=== PATIENT | male | born 1960 | race African-American/Black ===

== ENCOUNTER 2019-02-04 14:01 | Inpatient (IN) | payer SELFPAY ==
[~2019-02-04] VITALS: Ht 182.9 cm; Wt 105.7 kg
--- NOTE | 2019-02-04 14:27 | RAD ---
CT HEAD WO CONTRAST Clinical indications: Stroke like symptoms. COMPARISON: None available. Technique: Noncontrast axial cross sectional scanning of the head was performed. PQRS compliance Statement One or more of the following individualized dose reduction techniques were utilized for this study: 1. Automated exposure control 2. Adjustment of the mA and/or kV according to patient size 3. Use of iterative reconstruction technique Findings: No acute intracranial hemorrhage or midline shift or mass-effect or hydrocephalus or extra-axial fluid collection is seen. No focal hypodense area or sulci effacement is seen to indicate an acute infarct or edema radiographically. No skull fracture or pneumocephalus is seen. No opacification of the mastoid sinuses or the paranasal sinuses is seen. The maxillary sinuses are not completely seen in this study. Impression: No acute intracranial abnormality is seen. Electronically signed by: Francisco Rossi MD (02/04/2019 2:24 PM) [id number]
[2019-02-04] MEDS: ASPIRIN CHEWABLE 81 MG TABLET. PO ONE ×2 (14:35→15:25)
--- NOTE | 2019-02-04 14:46 | PHYS DOC ---
Past Medical History Past Medical History: Hypertension Smoking: Cigarettes Adult General Chief Complaint Chief Complaint: NEURO SYMPTOMS/DEFICITS HPI HPI Patient is a 58-year-old male who presents to the emergency department for evaluation. He states that 45 minutes prior to arrival, he began to feel funny. He states he had some tingling in his left hand, and there was some questionable left hand weakness as well and possible left facial droop. The patient denies any headache or vision changes, or any pain. A code stroke was activated upon his arrival. He denies any chest pain shortness of breath, nausea, vomiting, or ataxia. There are no alleviating or exacerbating factors to his symptoms. Review of Systems Review of Systems Constitutional: Denies fever or chills [] Eyes: Denies change in visual acuity, redness, or eye pain [] HENT: Denies nasal congestion or sore throat [] Respiratory: Denies cough or shortness of breath [] Cardiovascular:The patient denies any shortness of breath, chest pain, palpitations, or orthopnea [] GI: Denies abdominal pain, nausea, vomiting, bloody stools or diarrhea [] : Denies dysuria or hematuria [] Musculoskeletal: Denies back pain or joint pain [] Integument: Denies rash or skin lesions [] Neurologic: No additional information not addressed in HPI [] Endocrine: Denies polyuria or polydipsia [] All other systems were reviewed and found to be within normal limits, except as documented in this note. Current Medications Current Medications Current Medications Medications (Trade) Dose Ordered Sig/Dipika Start Time Stop Time Status Last Admin Dose Admin Acetaminophen (Tylenol Supp) 650 mg PRN Q4HRS PRN 02/04/19 15:30 UNV Acetaminophen (Tylenol) 650 mg PRN Q6HRS PRN 02/04/19 15:30 UNV Aspirin (Aspirin Rectal Supp) 300 mg PRN DAILY PRN 02/04/19 15:30 UNV Aspirin (Children'S Aspirin) 324 mg 1X ONCE 02/04/19 14:30 02/04/19 14:57 DC 02/04/19 15:25 324 MG Aspirin (Ecotrin) 325 mg [id number] 02/05/19 08:00 UNV Iohexol (Omnipaque 350 Mg/ml) 75 ml 1X ONCE 02/04/19 15:00 02/04/19 15:01 DC 02/04/19 15:00 75 ML Simvastatin (Zocor) 10 mg QHS 02/04/19 21:00 UNV Allergies Allergies Allergies Coded Allergies Type Severity Reaction Last Updated Verified No Known Drug Allergies 02/04/19 No Physical Exam Physical Exam PHYSICAL EXAM: CONSTITUTIONAL: Well developed, well nourished HEAD: normocephalic, atraumatic EENT: PERRL, EOMI. Conjunctivae normal color, sclerae non-icteric; moist mucous membranes. NECK: Supple, non-tender; no meningismus. LUNGS: Lungs CTA, breathing even and unlabored. Normal air movement. HEART: Regular rate and rhythm, no murmur CHEST: No deformity; non-tender ABDOMEN: The abdomen is soft, and non-tender, no masses or bruits. EXTREM: Normal ROM; no deformity, no calf tenderness. Normal pulses palpable in all extremities. There is no pedal edema. SKIN: No rash; no diaphoresis NEURO: Alert; normal speech and cognition, CN's grossly intact to the patient's uncle, there is a questionable left-sided facial droop, very subtle, not appreciated by the examiner. Sensation to pinprick is diminished on the left side compared to the right, but grossly present. Finger nose finger and [id number] testing are normal. Visual stewart are intact by confrontation.; strength grossly intact without focal deficit. BACK: No CVA TTP. Current Patient Data Vital Signs Vital Signs Date Time Temp Pulse Resp B/P (MAP) Pulse Ox O2 Delivery O2 Flow Rate FiO2 02/04/19 14:20 98.2 98 12 150/71 (97) 100 98.2 Lab Values Laboratory Tests Test 02/04/19 14:10 02/04/19 14:25 02/04/19 15:00 02/04/19 15:08 Glucose (Fingerstick) 114 mg/dL (70-99) H White Blood Count 8.2 x10^3/uL (4.0-11.0) Red Blood Count 4.39 x10^6/uL (4.30-5.70) Hemoglobin 13.8 g/dL (13.0-17.5) Hematocrit 40.5 % (39.0-53.0) Mean Corpuscular Volume 92 fL (79-100) Mean Corpuscular Hemoglobin 31 pg (25-35) Mean Corpuscular Hemoglobin Concent 34 g/dL (31-37) Red Cell Distribution Width 15.3 % (11.5-14.5) H Platelet Count 226 x10^3/uL (140-400) Neutrophils (%) (Auto) 59 % (31-73) Lymphocytes (%) (Auto) 29 % (24-48) Monocytes (%) (Auto) 8 % (0-9) Eosinophils (%) (Auto) 3 % (0-3) Basophils (%) (Auto) 1 % (0-3) Neutrophils # (Auto) 4.8 x10^3uL (1.8-7.7) Lymphocytes # (Auto) 2.4 x10^3/uL (1.0-4.8) Monocytes # (Auto) 0.7 x10^3/uL (0.0-1.1) Eosinophils # (Auto) 0.3 x10^3/uL (0.0-0.7) Basophils # (Auto) 0.1 x10^3/uL (0.0-0.2) Sodium Level 141 mmol/L (136-145) Potassium Level 3.8 mmol/L (3.5-5.1) Chloride Level 103 mmol/L (98-107) Carbon Dioxide Level 27 mmol/L (21-32) Anion Gap 11 (6-14) Blood Urea Nitrogen 13 mg/dL (8-26) Creatinine 1.0 mg/dL (0.7-1.3) Estimated GFR (Cockcroft-Gault) 92.9 BUN/Creatinine Ratio 13 (6-20) Glucose Level 111 mg/dL (70-99) H Calcium Level 9.0 mg/dL (8.5-10.1) Total Bilirubin 0.3 mg/dL (0.2-1.0) Aspartate Amino Transferase (AST) 18 U/L (15-37) Alanine Aminotransferase (ALT) 24 U/L (16-63) Alkaline Phosphatase 56 U/L (46-116) Troponin I Quantitative < 0.017 ng/mL (0.000-0.055) RC-Wfa-N-Type Natriuretic Peptide 51 pg/mL (0-124) Total Protein 6.9 g/dL (6.4-8.2) Albumin 3.7 g/dL (3.4-5.0) Albumin/Globulin Ratio 1.2 (1.0-1.7) Prothrombin Time 14.4 SEC (11.7-14.0) H Prothrombin Time INR 1.2 (0.8-1.1) H Urine Opiates Screen Pos (NEG) Urine Methadone Screen Neg (NEG) Urine Barbiturates Neg (NEG) Urine Phencyclidine Screen Neg (NEG) Urine Amphetamine/Methamphetamine Neg (NEG) Urine Benzodiazepines Screen Pos (NEG) Urine Cocaine Screen Neg (NEG) Urine Cannabinoids Screen Pos (NEG) Urine Ethyl Alcohol Pos (NEG) Laboratory Tests 02/04/19 14:25 Laboratory Tests 02/04/19 14:25 EKG EKG []Normal sinus rhythm at a rate of 90 beats for minute, normal axis, normal intervals. There are no acute ischemic ST/T changes. Radiology/Procedures Radiology/Procedures PROCEDURE: CT HEAD WO CONTRAST CT HEAD WO CONTRAST Clinical indications: Stroke like symptoms. COMPARISON: None available. Technique: Noncontrast axial cross sectional scanning of the head was performed. PQRS compliance Statement One or more of the following individualized dose reduction techniques were utilized for this study: 1. Automated exposure control 2. Adjustment of the mA and/or kV according to patient size 3. Use of iterative reconstruction technique Findings: No acute intracranial hemorrhage or midline shift or mass-effect or hydrocephalus or extra-axial fluid collection is seen. No focal hypodense area or sulci effacement is seen to indicate an acute infarct or edema radiographically. No skull fracture or pneumocephalus is seen. No opacification of the mastoid sinuses or the paranasal sinuses is seen. The maxillary sinuses are not completely seen in this study. Impression: No acute intracranial abnormality is seen. Course & Med Decision Making Course & Med Decision Making Pertinent Labs and Imaging studies reviewed. (See chart for details) []2:35 PM: I spoke with Dr. Brandon, who will come and evaluate the patient. Due to the low NIH stroke scale, TPA is not indicated at this time. 3:40 PM: The patient's condition remains stable. I spoke with the hospitalist, who accepted the patient to the hospital for further evaluation and treatment. CT angiogram is currently pending. CRITICAL CARE TIME: 50 Minutes, excluding any procedures and care of other patients. Dragon Disclaimer Dragon Disclaimer This electronic medical record was generated, in whole or in part, using a voice recognition dictation system. NIHSS Stroke Scale NIH Stroke Scale: NIH Stroke Scale Response (Comments) Value Level of Consciousness: 0 Alert/Responsive 0 LOC Questions: 0 Answers both correctly 0 LOC Commands: 0 Performs both tasks 0 Best Gaze: 0 Normal 0 Visual: 0 No visual loss 0 Facial Palsy: 1 Minor paralysis (questionable) 1 Motor - Left Arm 0 No drift 0 Motor - Right Arm 0 No drift 0 Motor - Left Leg 0 No drift 0 Motor: Right Leg 0 No drift 0 Limb Ataxia: 0 Absent 0 Sensory: 1 Mid to moderate loss 1 Best Language: 0 Normal 0 Dysathria: 0 Normal 0 Extinction and Inattention: 0 Normal 0 Total 2 Departure Departure Impression: Primary Impression: Acute ischemic stroke Additional Impression: Lacunar stroke Disposition: 09 ADMITTED INPATIENT Admitting Physician: NIKI Condition: STABLE Problem Qualifiers FABIO BATES MD February 04, 2019 14:46
[2019-02-04 14:48] LABS: BASO # 0.1 x10^3/uL (0.0-0.2); BASO % 1 % (0-3); EOS # 0.3 x10^3/uL (0.0-0.7); EOS % 3 % (0-3); HEMATOCRIT 40.5 % (39.0-53.0); HEMOGLOBIN 13.8 g/dL (13.0-17.5); LYMPH # 2.4 x10^3/uL (1.0-4.8); LYMPH % 29 % (24-48); MEAN CORPUSCULAR HEMOGLOBIN 31 pg (25-35); MEAN CORPUSCULAR HGB CONC 34 g/dL (31-37); MEAN CORPUSCULAR VOLUME 92 fL (79-100); MONO # 0.7 x10^3/uL (0.0-1.1); MONO % 8 % (0-9); NEUT # 4.8 x10^3uL (1.8-7.7); NEUT % 59 % (31-73); PLATELET COUNT 226 x10^3/uL (140-400); RED BLOOD COUNT 4.39 x10^6/uL (4.30-5.70); RED CELL DISTRIBUTION WIDTH 15.3 % (11.5-14.5); WHITE BLOOD COUNT 8.2 x10^3/uL (4.0-11.0)
--- NOTE | 2019-02-04 14:51 | RAD ---
EXAM: CHEST 1 VIEW History: Stroke like symptoms, weakness COMPARISON: None available. TECHNIQUE: Single portable radiograph of the chest FINDINGS: The cardiac silhouette is unremarkable. The lungs are clear bilaterally. The costophrenic sulci are clear and well demarcated. IMPRESSION: No radiographic evidence of an acute cardiopulmonary process. Electronically signed by: Diogo Loredo MD (02/04/2019 2:49 PM) [facility]
[2019-02-04] MEDS ORDERED: IOHEXOL 350 MG/ML 100 ML VIAL. IV ONE (15:00)
--- NOTE | 2019-02-04 15:13 | EKG ---
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
[2019-02-04 15:17] LABS: ALBUMIN 3.7 g/dL (3.4-5.0); ALBUMIN/GLOBULIN RATIO 1.2 (1.0-1.7); GFR 92.9; POTASSIUM 3.8 mmol/L (3.5-5.1); TOTAL BILIRUBIN 0.3 mg/dL (0.2-1.0); TOTAL PROTEIN 6.9 g/dL (6.4-8.2)
[2019-02-04 15:18] LABS: BILIRUBIN,URINE NEGATIVE (NEG); CLARITY,URINE CLEAR; COLOR,URINE YELLOW; NITRITE,URINE NEGATIVE (NEG); PH,URINE 5.5; PROTEIN,URINE NEGATIVE (NEG-TRACE)
[2019-02-04 15:25] LABS: BARBITURATES NEG (NEG); BENZODIAZEPINES POS (NEG); CANNABINOIDS POS (NEG); COCAINE NEG (NEG); METHADONE NEG (NEG); OPIATES POS (NEG); PHENCYCLIDINE NEG (NEG)
[2019-02-04 15:26] LABS: PROTHROMBIN TIME PATIENT 14.4 SEC (11.7-14.0)
[2019-02-04] MEDS ORDERED: ACETAMINOPHEN 325 MG TABLET. PO PRN (15:30)
[2019-02-04] MEDS ORDERED: ACETAMINOPHEN 650 MG SUPP.RECT. PR PRN (15:30)
[2019-02-04] MEDS ORDERED: ASPIRIN RECTAL 300 MG SUPP. PR PRN (15:30)
--- NOTE | 2019-02-04 15:34 | PDOC2 ---
NEUROLOGY CONSULT Date of Admission Date of Admission DATE: 02/04/19 TIME: 15:29 Reason for Consult Reason for Consult: Stroke symptoms Referring Physician Referring Physician: Hospitalist Source Source: Caregiver (uncle), Chart review, Patient History of Present Illness History of Present Illness The patient is a 58-year-old right-handed male with history of hypertension who went to visit his uncle about 1:[address] over started noticing some lightheadedness. He noticed some left arm numbness in the uncle noticed some left facial droop. The patient is feeling better now although he still has some left-sided numbness. There is no prior history of stroke, seizure, or head injury. 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, no treat drugs, smokes cigarettes, 2 alcoholic beverages a day, beer Current Medications Current Medications Current Medications Aspirin (Children'S Aspirin) 324 mg 1X ONCE PO Last administered on 02/04/19at 15:25; Start 02/04/19 at 14:30; Stop 02/04/19 at 14:57; Status DC Iohexol (Omnipaque 350 Mg/ml) 75 ml 1X ONCE IV ; Start 02/04/19 at 15:00; Stop 02/04/19 at 15:01; Status DC Allergies Allergies: Coded Allergies: No Known Drug Allergies (Unverified , 02/04/19) ROS Review of System Negative for fever, chills, weight loss, shortness of breath, chest pain, indigestion, hematochezia, melena, and dysuria. Full 14-point review of systems is negative. Physical Exam Physical Examination General: Well-developed, well-nourished black male in no acute distress HEENT: Normocephalic andatraumatic. Temporal arteriespulsatile and nontender. Neck: Supple without bruit, no meningismus Musculoskeletal: Stability:see neurologic. Gait exam:see neurologic. Tone:see neurologic.S trength:see neurologic. Neurological: Mental Status:intact, orientation, memory, attention span/concentration, language, fund of knowledge normal. Cranial Nerves:Pupils equal and reactive to light, extraocular movements areintact, visual stewart are full to confrontation. Facial sensation is normal. There is no facial asymmetry. Vestibulo-ocular reflex is intact. Palate elevates and tongue protrudes in midline. All other cranial related problems are negative except as mentioned before.Reflexes:2+ and symmetric with flexor plantar responses. Motor:5/5 strength with normal tone and bulk. Coordination:Finger-nose finger and ellen l-to-ivy testing are normal. Rapid alternating movements and fine finger movements are intact. Gait:Normal, including tandem. Sensory:Left sensory loss, arm and leg, spares face Vitals VITALS Vital Signs Date Time Temp Pulse Resp B/P (MAP) Pulse Ox O2 Delivery O2 Flow Rate FiO2 02/04/19 14:20 98.2 98 12 150/71 (97) 100 98.2 Labs Labs Laboratory Tests Test 02/04/19 14:10 02/04/19 14:25 Glucose (Fingerstick) 114 mg/dL (70-99) White Blood Count 8.2 x10^3/uL (4.0-11.0) Red Blood Count 4.39 x10^6/uL (4.30-5.70) Hemoglobin 13.8 g/dL (13.0-17.5) Hematocrit 40.5 % (39.0-53.0) Mean Corpuscular Volume 92 fL (79-100) Mean Corpuscular Hemoglobin 31 pg (25-35) Mean Corpuscular Hemoglobin Concent 34 g/dL (31-37) Red Cell Distribution Width 15.3 % (11.5-14.5) Platelet Count 226 x10^3/uL (140-400) Neutrophils (%) (Auto) 59 % (31-73) Lymphocytes (%) (Auto) 29 % (24-48) Monocytes (%) (Auto) 8 % (0-9) Eosinophils (%) (Auto) 3 % (0-3) Basophils (%) (Auto) 1 % (0-3) Neutrophils # (Auto) 4.8 x10^3uL (1.8-7.7) Lymphocytes # (Auto) 2.4 x10^3/uL (1.0-4.8) Monocytes # (Auto) 0.7 x10^3/uL (0.0-1.1) Eosinophils # (Auto) 0.3 x10^3/uL (0.0-0.7) Basophils # (Auto) 0.1 x10^3/uL (0.0-0.2) Sodium Level 141 mmol/L (136-145) Potassium Level 3.8 mmol/L (3.5-5.1) Chloride Level 103 mmol/L (98-107) Carbon Dioxide Level 27 mmol/L (21-32) Anion Gap 11 (6-14) Blood Urea Nitrogen 13 mg/dL (8-26) Creatinine 1.0 mg/dL (0.7-1.3) Estimated GFR (Cockcroft-Gault) 92.9 BUN/Creatinine Ratio 13 (6-20) Glucose Level 111 mg/dL (70-99) Calcium Level 9.0 mg/dL (8.5-10.1) Total Bilirubin 0.3 mg/dL (0.2-1.0) Aspartate Amino Transf (AST/SGOT) 18 U/L (15-37) Alanine Aminotransferase (ALT/SGPT) 24 U/L (16-63) Alkaline Phosphatase 56 U/L (46-116) Troponin I Quantitative < 0.017 ng/mL (0.000-0.055) YP-Dkg-Q-Type Natriuretic Peptide 51 pg/mL (0-124) Total Protein 6.9 g/dL (6.4-8.2) Albumin 3.7 g/dL (3.4-5.0) Albumin/Globulin Ratio 1.2 (1.0-1.7) Laboratory Tests Test 02/04/19 14:10 02/04/19 14:25 Glucose (Fingerstick) 114 mg/dL (70-99) White Blood Count 8.2 x10^3/uL (4.0-11.0) Red Blood Count 4.39 x10^6/uL (4.30-5.70) Hemoglobin 13.8 g/dL (13.0-17.5) Hematocrit 40.5 % (39.0-53.0) Mean Corpuscular Volume 92 fL (79-100) Mean Corpuscular Hemoglobin 31 pg (25-35) Mean Corpuscular Hemoglobin Concent 34 g/dL (31-37) Red Cell Distribution Width 15.3 % (11.5-14.5) Platelet Count 226 x10^3/uL (140-400) Neutrophils (%) (Auto) 59 % (31-73) Lymphocytes (%) (Auto) 29 % (24-48) Monocytes (%) (Auto) 8 % (0-9) Eosinophils (%) (Auto) 3 % (0-3) Basophils (%) (Auto) 1 % (0-3) Neutrophils # (Auto) 4.8 x10^3uL (1.8-7.7) Lymphocytes # (Auto) 2.4 x10^3/uL (1.0-4.8) Monocytes # (Auto) 0.7 x10^3/uL (0.0-1.1) Eosinophils # (Auto) 0.3 x10^3/uL (0.0-0.7) Basophils # (Auto) 0.1 x10^3/uL (0.0-0.2) Sodium Level 141 mmol/L (136-145) Potassium Level 3.8 mmol/L (3.5-5.1) Chloride Level 103 mmol/L (98-107) Carbon Dioxide Level 27 mmol/L (21-32) Anion Gap 11 (6-14) Blood Urea Nitrogen 13 mg/dL (8-26) Creatinine 1.0 mg/dL (0.7-1.3) Estimated GFR (Cockcroft-Gault) 92.9 BUN/Creatinine Ratio 13 (6-20) Glucose Level 111 mg/dL (70-99) Calcium Level 9.0 mg/dL (8.5-10.1) Total Bilirubin 0.3 mg/dL (0.2-1.0) Aspartate Amino Transf (AST/SGOT) 18 U/L (15-37) Alanine Aminotransferase (ALT/SGPT) 24 U/L (16-63) Alkaline Phosphatase 56 U/L (46-116) Troponin I Quantitative < 0.017 ng/mL (0.000-0.055) PQ-Itv-Q-Type Natriuretic Peptide 51 pg/mL (0-124) Total Protein 6.9 g/dL (6.4-8.2) Albumin 3.7 g/dL (3.4-5.0) Albumin/Globulin Ratio 1.2 (1.0-1.7) Images Images CT HEAD WO CONTRAST No acute intracranial hemorrhage or midline shift or mass-effect or hydrocephalus or extra-axial fluid collection is seen. No focal hypodense area or sulci effacement is seen to indicate an acute infarct or edema radiographically. No skull fracture or pneumocephalus is seen. No opacification of the mastoid sinuses or the paranasal sinuses is seen. The maxillary sinuses are not completely seen in this study. Impression: No acute intracranial abnormality is seen. Assessment/Plan Assessment/Plan Impression: Clinically a right thalamic lacunar stroke causing only sensory symptoms. He is making a rapid improvement and has only minimal findings on exam, so, as discussed with Dr. Greene, I agree that he is not a candidate for alteplase Recommendations: Aspirin MRI of the brain Echocardiogram Carotid Doppler studies Rehabilitation screening Aspirin Patient will have to hold his ibuprofen while taking aspirin, he can use Tylenol instead Aim for discharge tomorrow. Also see stroke orders. Thank you for letting me help with the patient's care. FAHAD ARGUETA MD February 04, 2019 15:34
[2019-02-04 15:35] LABS: AMPHETAMINE/METHAMPHETAMINE NEG (NEG)
[2019-02-04 15:48] LABS: BACTERIA,URINE 0 /HPF (0-FEW); HYALINE CASTS, URINE OCCASIONAL /HPF; WBC,URINE 0 /HPF (0-4)
--- NOTE | 2019-02-04 16:25 | RAD ---
CT ANGIOGRAPHY HEAD AND NECK Indication: Left-sided weakness Exposure: One or more of the following individualized dose reduction techniques were utilized for this examination: 1. Automated exposure control 2. Adjustment of the mA and/or kV according to patient size 3. Use of iterative reconstruction technique. TECHNIQUE: Standard imaging obtained after intravenous contrast. MIP reconstructions were obtained. All carotid stenosis measurements are in conformance with NASCET-type methodology. Emergency interpretation and reporting was requested to exclude large vessel occlusion. Comparison: None are available. NECK: Right carotid artery is grossly patent. Left carotid artery is grossly patent. Right vertebral artery is diffusely and uniformly narrow in caliber, and is poorly seen at some levels due to streak artifact from bones but no definite occlusion. The left vertebral artery is dominant in caliber and appears grossly patent although again there is limited visualization of subsegments due to artifact from the bones. HEAD: The distal right vertebral artery is very small in the distal left vertebral artery is dominant. Basilar artery is patent. There is venous contamination on the exam. Posterior cerebral arteries are patent bilaterally. The intracranial carotid arteries are grossly patent. Middle cerebral arteries and anterior cerebral arteries are patent. No evidence of large aneurysm. Nonvascular findings: Limited due to technique which was dedicated towards arterial evaluation. There is a heterogeneous thyroid nodule on the right measuring about 12 mm. Degenerative spondylosis of the cervical spine with moderate to severe spinal and neural foraminal stenosis. PET was evaluated separately on CT head report. IMPRESSION: 1. No evidence of large vessel occlusion. 2. Heterogeneous 12 mm right thyroid nodule. Ultrasound could further evaluate. 3. Cervical spondylosis with moderate to severe spinal and foraminal stenosis. Electronically signed by: Candido Joseph MD (02/04/2019 4:22 PM) [id number]
[2019-02-04 18:41] VITALS: BP 129/87
[2019-02-04 19:10] VITALS: BP 140/83
--- NOTE | 2019-02-04 19:19 | PDOC1 ---
History and Physical Date of Admission: Date of Admission DATE: 02/04/19 TIME: 19:16 Chief Complaint: Problems: (1) Acute ischemic stroke (2) Lacunar stroke Chief Complain: Left-sided weakness History of Present Illness: HPI: This is a middle-aged male who presented to the ER with left- sided weakness He rates it 7 out of 10 Has been coming on for couple days but got worse today It's better with sitting still worse with moving He took home meds with that and work Describes as irritating Appears he may have had a low lacunar infarct on imaging I discussed the case with ER physician were going to with patient did physical therapy back facial therapy speech therapy and consult neurology Past Medical/Surgical History: PMH/PSH: Hypertension Allergies: Allergies: Coded Allergies: No Known Drug Allergies (Unverified , 02/04/19) Family History: Family History: Strokes Social History: Social Hisoty: He doesn't drink smoke or take drugs Current Medications: Current Medications Current Medications Aspirin (Children'S Aspirin) 324 mg 1X ONCE PO Last administered on 02/04/19at 15:25; Start 02/04/19 at 14:30; Stop 02/04/19 at 14:57; Status DC Iohexol (Omnipaque 350 Mg/ml) 75 ml 1X ONCE IV Last administered on 02/04/19at 15:00; Start 02/04/19 at 15:00; Stop 02/04/19 at 15:01; Status DC Simvastatin (Zocor) 10 mg QHS PO ; Start 02/04/19 at 21:00 Acetaminophen (Tylenol) 650 mg PRN Q6HRS PRN PO TEMP > 100.4F; Start 02/04/19 at 15:30 Acetaminophen (Tylenol Supp) 650 mg PRN Q4HRS PRN [place] TEMP > 100.4F; Start 02/04/19 at 15:30 Aspirin (Ecotrin) 325 mg DAILYWBKFT PO ; Start 02/05/19 at 08:00 Aspirin (Aspirin Rectal Supp) 300 mg PRN DAILY PRN [place] IF UNABLE TO TAKE PO; Start 02/04/19 at 15:30 Acetaminophen/ Hydrocodone Bitart (Lortab 5/325) 1 tab PRN Q4HRS PRN PO PAIN; Start 02/04/19 at 18:00 ROS: Review of Systems Review of System REVIEW OF SYSTEMS: GENERAL: Complains of left-sided weakness SKIN: No bruising, hair changes or rashes. EYES: No blurred, double or loss of vision. NOSE AND THROAT: No history of nosebleeds, hoarseness or sore throat. HEART: No history of palpitations, chest pain or shortness of breath on exertion. LUNGS: Denies cough, hemoptysis, wheezing or shortness of breath. GASTROINTESTINAL: Denies changes in appetite, nausea, vomiting, diarrhea or constipation. GENITOURINARY: No history of frequency, urgency, hesitancy or nocturia. NEUROLOGIC: Complains of left-sided weakness ENDOCRINE: No history of heat or cold intolerance, polyuria or polydipsia. EXTREMITIES: Denies muscle weakness, joint pain, pain on walking or stiffness. Physical Exam: Vital Signs: Vital Signs Date Time Temp Pulse Resp B/P (MAP) Pulse Ox O2 Delivery O2 Flow Rate FiO2 02/04/19 18:41 98.1 81 16 129/87 (101) 95 Room Air 98.1 Physcial Exam: GEN.: No apparent distress. Alert and oriented. HEENT: Head is normocephalic, atraumatic NECK: Supple, no JVD LUNGS: Clear to auscultation without rhonchi or wheezing HEART: RRR, S1, S2 present. Peripheral pulses intact ABDOMEN: Soft, nontender. Positive bowel sounds no organomegaly EXTREMITIES: Without any cyanosis, clubbing, or edema. Pedal pulses intact NEUROLOGIC: Left leg is weak but he has good area manager strength PSYCHIATRIC: Normal affect, normal mood. Stable SKIN: No ulcerations or rashes VASCULAR: Good capillary refill Labs: Labs: Laboratory Tests Test 02/04/19 14:10 02/04/19 14:25 02/04/19 15:00 02/04/19 15:08 Glucose (Fingerstick) 114 mg/dL (70-99) White Blood Count 8.2 x10^3/uL (4.0-11.0) Red Blood Count 4.39 x10^6/uL (4.30-5.70) Hemoglobin 13.8 g/dL (13.0-17.5) Hematocrit 40.5 % (39.0-53.0) Mean Corpuscular Volume 92 fL (79-100) Mean Corpuscular Hemoglobin 31 pg (25-35) Mean Corpuscular Hemoglobin Concent 34 g/dL (31-37) Red Cell Distribution Width 15.3 % (11.5-14.5) Platelet Count 226 x10^3/uL (140-400) Neutrophils (%) (Auto) 59 % (31-73) Lymphocytes (%) (Auto) 29 % (24-48) Monocytes (%) (Auto) 8 % (0-9) Eosinophils (%) (Auto) 3 % (0-3) Basophils (%) (Auto) 1 % (0-3) Neutrophils # (Auto) 4.8 x10^3uL (1.8-7.7) Lymphocytes # (Auto) 2.4 x10^3/uL (1.0-4.8) Monocytes # (Auto) 0.7 x10^3/uL (0.0-1.1) Eosinophils # (Auto) 0.3 x10^3/uL (0.0-0.7) Basophils # (Auto) 0.1 x10^3/uL (0.0-0.2) Sodium Level 141 mmol/L (136-145) Potassium Level 3.8 mmol/L (3.5-5.1) Chloride Level 103 mmol/L (98-107) Carbon Dioxide Level 27 mmol/L (21-32) Anion Gap 11 (6-14) Blood Urea Nitrogen 13 mg/dL (8-26) Creatinine 1.0 mg/dL (0.7-1.3) Estimated GFR (Cockcroft-Gault) 92.9 BUN/Creatinine Ratio 13 (6-20) Glucose Level 111 mg/dL (70-99) Calcium Level 9.0 mg/dL (8.5-10.1) Total Bilirubin 0.3 mg/dL (0.2-1.0) Aspartate Amino Transf (AST/SGOT) 18 U/L (15-37) Alanine Aminotransferase (ALT/SGPT) 24 U/L (16-63) Alkaline Phosphatase 56 U/L (46-116) Troponin I Quantitative < 0.017 ng/mL (0.000-0.055) MZ-Qid-U-Type Natriuretic Peptide 51 pg/mL (0-124) Total Protein 6.9 g/dL (6.4-8.2) Albumin 3.7 g/dL (3.4-5.0) Albumin/Globulin Ratio 1.2 (1.0-1.7) Prothrombin Time 14.4 SEC (11.7-14.0) Prothromb Time International Ratio 1.2 (0.8-1.1) Urine Collection Type Unknown Urine Color Yellow Urine Clarity Clear Urine pH 5.5 Urine Specific [place] 1.025 Urine Protein Negative mg/dL (NEG-TRACE) Urine Glucose (UA) Negative mg/dL (NEG) Urine Ketones (Stick) Negative mg/dL (NEG) Urine Blood Trace (NEG) Urine Nitrite Negative (NEG) Urine Bilirubin Negative (NEG) Urine Urobilinogen Dipstick 1.0 mg/dL (0.2 mg/dL) Urine Leukocyte Esterase Negative (NEG) Urine RBC 3-5 /HPF (0-2) Urine WBC 0 /HPF (0-4) Urine Bacteria 0 /HPF (0-FEW) Urine Hyaline Casts Occasional /HPF Urine Mucus Marked /LPF Urine Opiates Screen Pos (NEG) Urine Methadone Screen Neg (NEG) Urine Barbiturates Neg (NEG) Urine Phencyclidine Screen Neg (NEG) Urine Amphetamine/Methamphetamine Neg (NEG) Urine Benzodiazepines Screen Pos (NEG) Urine Cocaine Screen Neg (NEG) Urine Cannabinoids Screen Pos (NEG) Urine Ethyl Alcohol Pos (NEG) Laboratory Tests Test 02/04/19 14:10 02/04/19 14:25 02/04/19 15:00 02/04/19 15:08 Glucose (Fingerstick) 114 mg/dL (70-99) White Blood Count 8.2 x10^3/uL (4.0-11.0) Red Blood Count 4.39 x10^6/uL (4.30-5.70) Hemoglobin 13.8 g/dL (13.0-17.5) Hematocrit 40.5 % (39.0-53.0) Mean Corpuscular Volume 92 fL (79-100) Mean Corpuscular Hemoglobin 31 pg (25-35) Mean Corpuscular Hemoglobin Concent 34 g/dL (31-37) Red Cell Distribution Width 15.3 % (11.5-14.5) Platelet Count 226 x10^3/uL (140-400) Neutrophils (%) (Auto) 59 % (31-73) Lymphocytes (%) (Auto) 29 % (24-48) Monocytes (%) (Auto) 8 % (0-9) Eosinophils (%) (Auto) 3 % (0-3) Basophils (%) (Auto) 1 % (0-3) Neutrophils # (Auto) 4.8 x10^3uL (1.8-7.7) Lymphocytes # (Auto) 2.4 x10^3/uL (1.0-4.8) Monocytes # (Auto) 0.7 x10^3/uL (0.0-1.1) Eosinophils # (Auto) 0.3 x10^3/uL (0.0-0.7) Basophils # (Auto) 0.1 x10^3/uL (0.0-0.2) Sodium Level 141 mmol/L (136-145) Potassium Level 3.8 mmol/L (3.5-5.1) Chloride Level 103 mmol/L (98-107) Carbon Dioxide Level 27 mmol/L (21-32) Anion Gap 11 (6-14) Blood Urea Nitrogen 13 mg/dL (8-26) Creatinine 1.0 mg/dL (0.7-1.3) Estimated GFR (Cockcroft-Gault) 92.9 BUN/Creatinine Ratio 13 (6-20) Glucose Level 111 mg/dL (70-99) Calcium Level 9.0 mg/dL (8.5-10.1) Total Bilirubin 0.3 mg/dL (0.2-1.0) Aspartate Amino Transf (AST/SGOT) 18 U/L (15-37) Alanine Aminotransferase (ALT/SGPT) 24 U/L (16-63) Alkaline Phosphatase 56 U/L (46-116) Troponin I Quantitative < 0.017 ng/mL (0.000-0.055) YE-Oec-X-Type Natriuretic Peptide 51 pg/mL (0-124) Total Protein 6.9 g/dL (6.4-8.2) Albumin 3.7 g/dL (3.4-5.0) Albumin/Globulin Ratio 1.2 (1.0-1.7) Prothrombin Time 14.4 SEC (11.7-14.0) Prothromb Time International Ratio 1.2 (0.8-1.1) Urine Collection Type Unknown Urine Color Yellow Urine Clarity Clear Urine pH 5.5 Urine Specific [place] 1.025 Urine Protein Negative mg/dL (NEG-TRACE) Urine Glucose (UA) Negative mg/dL (NEG) Urine Ketones (Stick) Negative mg/dL (NEG) Urine Blood Trace (NEG) Urine Nitrite Negative (NEG) Urine Bilirubin Negative (NEG) Urine Urobilinogen Dipstick 1.0 mg/dL (0.2 mg/dL) Urine Leukocyte Esterase Negative (NEG) Urine RBC 3-5 /HPF (0-2) Urine WBC 0 /HPF (0-4) Urine Bacteria 0 /HPF (0-FEW) Urine Hyaline Casts Occasional /HPF Urine Mucus Marked /LPF Urine Opiates Screen Pos (NEG) Urine Methadone Screen Neg (NEG) Urine Barbiturates Neg (NEG) Urine Phencyclidine Screen Neg (NEG) Urine Amphetamine/Methamphetamine Neg (NEG) Urine Benzodiazepines Screen Pos (NEG) Urine Cocaine Screen Neg (NEG) Urine Cannabinoids Screen Pos (NEG) Urine Ethyl Alcohol Pos (NEG) Images: Images Findings: No acute intracranial hemorrhage or midline shift or mass-effect or hydrocephalus or extra-axial fluid collection is seen. No focal hypodense area or sulci effacement is seen to indicate an acute infarct or edema radiographically. No skull fracture or pneumocephalus is seen. No opacification of the mastoid sinuses or the paranasal sinuses is seen. The maxillary sinuses are not completely seen in this study. Impression: No acute intracranial abnormality is seen. Assessment/Plan Assessment/Plan Stroke symptoms Patient plan Consult neurology PT OT Daily aspirin Cardiac monitoring Home meds Full code DVT prophylaxis Prognosis guarded LOVE JAMES III DO February 04, 2019 19:19
[2019-02-04] MEDS ORDERED: SIMVASTATIN 10 MG TABLET PO SCH (21:00)
[2019-02-04] MEDS: HYDROcodone/APAP 5/325MG 1 TAB TABLET PO PRN (21:27)
[2019-02-04 23:59] VITALS: BP 129/81
[2019-02-05] MEDS: HYDROcodone/APAP 5/325MG 1 TAB TABLET PO PRN ×3 (01:59→12:57)
--- NOTE | 2019-02-05 03:16 | RAD ---
DOPPLER CAROTID BILAT Clinical Indication: CVA. Procedure: Pulsed wave and color-flow duplex imaging was utilized to evaluate the extracranial carotid arteries. Comparison: None. Findings: RIGHT SIDE: Mild atherosclerotic plaque on mcgee-scale images. Distal CCA peak systolic velocity 66 cm/sec. ICA peak systolic velocity 83 cm/sec. The right ICA/CCA ratio is 1.3. Flow within the right vertebral artery and right ECA is directed antegrade. Triphasic waveforms in the subclavian artery. LEFT SIDE: Mild atherosclerotic plaque on mcgee-scale images. Distal CCA peak systolic velocity 78 cm/sec. ICA peak systolic velocity 81 cm/sec. The left ICA/CCA ratio is 1.0. Flow within the left vertebral artery and left ECA is directed antegrade. Triphasic waveforms in the subclavian artery. Carotid legend: CCA = common carotid artery ICA = internal carotid artery ECA = external carotid artery IMPRESSION: No hemodynamically significant stenosis. Electronically signed by: Eugenio Aguilar DO (02/05/2019 3:13 AM) [id number]
[2019-02-05 03:54] VITALS: BP 151/83
[2019-02-05 05:59] LABS: CHOLESTEROL/HDL RATIO 3.6
[2019-02-05 07:00] VITALS: BP 144/110
[2019-02-05] MEDS ORDERED: ASPIRIN ENTERIC COATED 325 MG TABLET.DR. PO SCH (08:00)
--- NOTE | 2019-02-05 08:42 | PDOC ---
PROGRESS NOTES Assessment Problems Medical Problems: (1) Acute ischemic stroke Status: Acute Clinically a right thalamic lacunar stroke causing only sensory symptoms. He is making a rapid improvement and has only minimal findings on exam, so, as discussed with Dr. Greene, I agree that he is not a candidate for alteplase Left knee pain, chronic, patient says it's worse Plan Aspirin MRI of the brain Echocardiogram Aspirin Cholesterol favorable, would still use Statin Patient will have to hold his ibuprofen while taking aspirin, he can use Tylenol instead Okay for discharge, pending tests Consult PM&R re left knee, x-rays ordered Subjective C/O left knee and thigh pain Objective Vital Signs Date Time Temp Pulse Resp B/P (MAP) Pulse Ox O2 Delivery O2 Flow Rate FiO2 02/05/19 07:00 98.3 77 18 144/110 (121) 97 Room Air 98.3 Intake and Output 02/05/19 07:00 Intake Total 1620 ml Balance 1620 ml Intake Oral 1620 ml PHYSICAL EXAM Alert. Oriented to time, place and person. PERRL. EOMI. CN: no focal findings. Muscle tone: normal. Muscle strength: 5/5 DTR: 2+ Plantar reflex: flexor Gait: not examined in bed. Sensory exam: no abnormal findings. No cerebellar signs elicited. Left knee, no particular deformity, laxity Review of Relevant I have reviewed the following items kurtis (where applicable) has been applied. Labs Laboratory Tests Test 02/04/19 14:10 02/04/19 14:25 02/04/19 15:00 02/04/19 15:08 Glucose (Fingerstick) 114 mg/dL (70-99) White Blood Count 8.2 x10^3/uL (4.0-11.0) Red Blood Count 4.39 x10^6/uL (4.30-5.70) Hemoglobin 13.8 g/dL (13.0-17.5) Hematocrit 40.5 % (39.0-53.0) Mean Corpuscular Volume 92 fL (79-100) Mean Corpuscular Hemoglobin 31 pg (25-35) Mean Corpuscular Hemoglobin Concent 34 g/dL (31-37) Red Cell Distribution Width 15.3 % (11.5-14.5) Platelet Count 226 x10^3/uL (140-400) Neutrophils (%) (Auto) 59 % (31-73) Lymphocytes (%) (Auto) 29 % (24-48) Monocytes (%) (Auto) 8 % (0-9) Eosinophils (%) (Auto) 3 % (0-3) Basophils (%) (Auto) 1 % (0-3) Neutrophils # (Auto) 4.8 x10^3uL (1.8-7.7) Lymphocytes # (Auto) 2.4 x10^3/uL (1.0-4.8) Monocytes # (Auto) 0.7 x10^3/uL (0.0-1.1) Eosinophils # (Auto) 0.3 x10^3/uL (0.0-0.7) Basophils # (Auto) 0.1 x10^3/uL (0.0-0.2) Sodium Level 141 mmol/L (136-145) Potassium Level 3.8 mmol/L (3.5-5.1) Chloride Level 103 mmol/L (98-107) Carbon Dioxide Level 27 mmol/L (21-32) Anion Gap 11 (6-14) Blood Urea Nitrogen 13 mg/dL (8-26) Creatinine 1.0 mg/dL (0.7-1.3) Estimated GFR (Cockcroft-Gault) 92.9 BUN/Creatinine Ratio 13 (6-20) Glucose Level 111 mg/dL (70-99) Calcium Level 9.0 mg/dL (8.5-10.1) Total Bilirubin 0.3 mg/dL (0.2-1.0) Aspartate Amino Transf (AST/SGOT) 18 U/L (15-37) Alanine Aminotransferase (ALT/SGPT) 24 U/L (16-63) Alkaline Phosphatase 56 U/L (46-116) Troponin I Quantitative < 0.017 ng/mL (0.000-0.055) FN-Izu-B-Type Natriuretic Peptide 51 pg/mL (0-124) Total Protein 6.9 g/dL (6.4-8.2) Albumin 3.7 g/dL (3.4-5.0) Albumin/Globulin Ratio 1.2 (1.0-1.7) Prothrombin Time 14.4 SEC (11.7-14.0) Prothromb Time International Ratio 1.2 (0.8-1.1) Urine Collection Type Unknown Urine Color Yellow Urine Clarity Clear Urine pH 5.5 Urine Specific [place] 1.025 Urine Protein Negative mg/dL (NEG-TRACE) Urine Glucose (UA) Negative mg/dL (NEG) Urine Ketones (Stick) Negative mg/dL (NEG) Urine Blood Trace (NEG) Urine Nitrite Negative (NEG) Urine Bilirubin Negative (NEG) Urine Urobilinogen Dipstick 1.0 mg/dL (0.2 mg/dL) Urine Leukocyte Esterase Negative (NEG) Urine RBC 3-5 /HPF (0-2) Urine WBC 0 /HPF (0-4) Urine Bacteria 0 /HPF (0-FEW) Urine Hyaline Casts Occasional /HPF Urine Mucus Marked /LPF Urine Opiates Screen Pos (NEG) Urine Methadone Screen Neg (NEG) Urine Barbiturates Neg (NEG) Urine Phencyclidine Screen Neg (NEG) Urine Amphetamine/Methamphetamine Neg (NEG) Urine Benzodiazepines Screen Pos (NEG) Urine Cocaine Screen Neg (NEG) Urine Cannabinoids Screen Pos (NEG) Urine Ethyl Alcohol Pos (NEG) Test 02/05/19 04:55 Triglycerides Level 62 mg/dL (0-150) Cholesterol Level 143 mg/dL (0-200) LDL Cholesterol, Calculated 91 mg/dL (0-100) VLDL Cholesterol, Calculated 12 mg/dL (0-40) Non-HDL Cholesterol Calculated 103 mg/dL (0-129) HDL Cholesterol 40 mg/dL (40-60) Cholesterol/HDL Ratio 3.6 Laboratory Tests Test 02/04/19 14:10 02/04/19 14:25 02/04/19 15:00 02/04/19 15:08 Glucose (Fingerstick) 114 mg/dL (70-99) White Blood Count 8.2 x10^3/uL (4.0-11.0) Red Blood Count 4.39 x10^6/uL (4.30-5.70) Hemoglobin 13.8 g/dL (13.0-17.5) Hematocrit 40.5 % (39.0-53.0) Mean Corpuscular Volume 92 fL (79-100) Mean Corpuscular Hemoglobin 31 pg (25-35) Mean Corpuscular Hemoglobin Concent 34 g/dL (31-37) Red Cell Distribution Width 15.3 % (11.5-14.5) Platelet Count 226 x10^3/uL (140-400) Neutrophils (%) (Auto) 59 % (31-73) Lymphocytes (%) (Auto) 29 % (24-48) Monocytes (%) (Auto) 8 % (0-9) Eosinophils (%) (Auto) 3 % (0-3) Basophils (%) (Auto) 1 % (0-3) Neutrophils # (Auto) 4.8 x10^3uL (1.8-7.7) Lymphocytes # (Auto) 2.4 x10^3/uL (1.0-4.8) Monocytes # (Auto) 0.7 x10^3/uL (0.0-1.1) Eosinophils # (Auto) 0.3 x10^3/uL (0.0-0.7) Basophils # (Auto) 0.1 x10^3/uL (0.0-0.2) Sodium Level 141 mmol/L (136-145) Potassium Level 3.8 mmol/L (3.5-5.1) Chloride Level 103 mmol/L (98-107) Carbon Dioxide Level 27 mmol/L (21-32) Anion Gap 11 (6-14) Blood Urea Nitrogen 13 mg/dL (8-26) Creatinine 1.0 mg/dL (0.7-1.3) Estimated GFR (Cockcroft-Gault) 92.9 BUN/Creatinine Ratio 13 (6-20) Glucose Level 111 mg/dL (70-99) Calcium Level 9.0 mg/dL (8.5-10.1) Total Bilirubin 0.3 mg/dL (0.2-1.0) Aspartate Amino Transf (AST/SGOT) 18 U/L (15-37) Alanine Aminotransferase (ALT/SGPT) 24 U/L (16-63) Alkaline Phosphatase 56 U/L (46-116) Troponin I Quantitative < 0.017 ng/mL (0.000-0.055) WV-Lza-Y-Type Natriuretic Peptide 51 pg/mL (0-124) Total Protein 6.9 g/dL (6.4-8.2) Albumin 3.7 g/dL (3.4-5.0) Albumin/Globulin Ratio 1.2 (1.0-1.7) Prothrombin Time 14.4 SEC (11.7-14.0) Prothromb Time International Ratio 1.2 (0.8-1.1) Urine Collection Type Unknown Urine Color Yellow Urine Clarity Clear Urine pH 5.5 Urine Specific [place] 1.025 Urine Protein Negative mg/dL (NEG-TRACE) Urine Glucose (UA) Negative mg/dL (NEG) Urine Ketones (Stick) Negative mg/dL (NEG) Urine Blood Trace (NEG) Urine Nitrite Negative (NEG) Urine Bilirubin Negative (NEG) Urine Urobilinogen Dipstick 1.0 mg/dL (0.2 mg/dL) Urine Leukocyte Esterase Negative (NEG) Urine RBC 3-5 /HPF (0-2) Urine WBC 0 /HPF (0-4) Urine Bacteria 0 /HPF (0-FEW) Urine Hyaline Casts Occasional /HPF Urine Mucus Marked /LPF Urine Opiates Screen Pos (NEG) Urine Methadone Screen Neg (NEG) Urine Barbiturates Neg (NEG) Urine Phencyclidine Screen Neg (NEG) Urine Amphetamine/Methamphetamine Neg (NEG) Urine Benzodiazepines Screen Pos (NEG) Urine Cocaine Screen Neg (NEG) Urine Cannabinoids Screen Pos (NEG) Urine Ethyl Alcohol Pos (NEG) Test 02/05/19 04:55 Triglycerides Level 62 mg/dL (0-150) Cholesterol Level 143 mg/dL (0-200) LDL Cholesterol, Calculated 91 mg/dL (0-100) VLDL Cholesterol, Calculated 12 mg/dL (0-40) Non-HDL Cholesterol Calculated 103 mg/dL (0-129) HDL Cholesterol 40 mg/dL (40-60) Cholesterol/HDL Ratio 3.6 Medications Current Medications Aspirin (Children'S Aspirin) 324 mg 1X ONCE PO Last administered on 02/04/19at 15:25; Start 02/04/19 at 14:30; Stop 02/04/19 at 14:57; Status DC Iohexol (Omnipaque 350 Mg/ml) 75 ml 1X ONCE IV Last administered on 02/04/19at 15:00; Start 02/04/19 at 15:00; Stop 02/04/19 at 15:01; Status DC Simvastatin (Zocor) 10 mg QHS PO Last administered on 02/04/19at 21:26; Start 02/04/19 at 21:00 Acetaminophen (Tylenol) 650 mg PRN Q6HRS PRN PO TEMP > 100.4F; Start 02/04/19 at 15:30 Acetaminophen (Tylenol Supp) 650 mg PRN Q4HRS PRN [place] TEMP > 100.4F; Start 02/04/19 at 15:30 Aspirin (Ecotrin) 325 mg DAILYWBKFT PO ; Start 02/05/19 at 08:00 Aspirin (Aspirin Rectal Supp) 300 mg PRN DAILY PRN [place] IF UNABLE TO TAKE PO; Start 02/04/19 at 15:30 Acetaminophen/ Hydrocodone Bitart (Lortab 5/325) 1 tab PRN Q4HRS PRN PO PAIN Last administered on 02/05/19at 06:57; Start 02/04/19 at 18:00 Vitals/I & O Vital Sign - Last 24 Hours 02/04/19 02/04/19 02/04/19 02/04/19 14:20 14:30 14:45 15:00 Temp 98.2 98.2 Pulse 98 98 94 94 Resp 12 16 16 21 B/P (MAP) 150/71 (97) Pulse Ox 100 97 95 96 02/04/19 02/04/19 02/04/19 02/04/19 15:15 15:30 15:45 16:00 Pulse 92 88 89 85 Resp 20 20 21 19 Pulse Ox 97 96 97 98 02/04/19 02/04/19 02/04/19 02/04/19 16:15 16:30 16:45 18:41 Temp 98.1 98.1 Pulse 87 86 84 81 Resp 17 18 21 16 B/P (MAP) 129/87 (101) Pulse Ox 97 96 98 95 O2 Delivery Room Air 02/04/19 02/04/19 02/05/19 02/05/19 19:10 23:59 03:54 07:00 Temp 98.2 98.1 98.2 98.3 98.2 98.1 98.2 98.3 Pulse 75 73 71 77 Resp 18 18 18 B/P (MAP) 140/83 (102) 129/81 (97) 151/83 (105) 144/110 (121) Pulse Ox 98 98 97 O2 Delivery Room Air Room Air Room Air Intake and Output 02/04/19 02/04/19 02/05/19 15:00 23:00 07:00 Intake Total 720 ml 900 ml Balance 720 ml 900 ml FAHAD ARGUETA MD February 05, 2019 08:42
--- NOTE | 2019-02-05 10:01 | RAD ---
MRI Brain without contrast History: Left-sided numbness Technique: Multiplanar, multisequential noncontrast MR imaging was performed of the brain. Comparison: None Findings: There is some motion degradation. There is no significant restricted diffusion suggestive of recent infarct. There is no midline shift or intra-axial mass effect. There is a tiny focus of signal change of the left thalamus likely old lacunar infarct, some other artifact in the region of the basal ganglia and right thalamus. There is very minimal T2 and FLAIR hyperintense signal of the supratentorial periventricular white matter bilaterally. There is a small focus of T2 and FLAIR hyperintense signal of the right brent. Ventricles are considered within normal limits in size. There is moderate, somewhat complex appearing fluid of the left mastoid air cells posteriorly. There is preservation of the major arterial intracranial flow voids at the skull base. There is mild to moderate left maxillary sinus mucosal thickening greater inferiorly, very minimal right maxillary sinus mucosal thickening, also patchy mild bilateral ethmoid air cell mucosal thickening. There is some deviation of the nasal septum to the right. There is disconjugate gaze. There is a focus of nonexpansile decreased signal on all sequence of the left frontal calvarium about 0.9 cm, possibly an osteoma. Impression: 1. There is no evidence of recent infarct or intracranial mass effect. There is small old left thalamic lacunar infarct. There is other very minimal T2 and FLAIR hyperintense signal of the supratentorial parenchyma and small focus of the right brent possibly due to chronic microvascular ischemic disease. 2. There is moderate complex appearing fluid of the left mastoid air cells, uncertain sterility. Electronically signed by: Andrew Bond MD (02/05/2019 9:58 AM) [id number]
--- NOTE | 2019-02-05 10:14 | RAD ---
AP standing knees, 02/05/2019: HISTORY: Left knee pain The knee joint spaces are well preserved. No fracture or significant arthritis is identified on this limited exam. Electronically signed by: Ritchie Barillas MD (02/05/2019 10:11 AM) [facility]
--- NOTE | 2019-02-05 10:26 | PDOC ---
[employer] PROGRESS NOTE Chief Complaint Chief Complaint Left-sided weakness stroke symptoms back pain History of Present Illness History of Present Illness Patient was seen and examined Chart reviewed Discussed with RN Vitals Vitals Vital Signs Date Time Temp Pulse Resp B/P (MAP) Pulse Ox O2 Delivery O2 Flow Rate FiO2 02/05/19 07:00 98.3 77 18 144/110 (121) 97 Room Air 98.3 Physical Exam General: Alert, Oriented X3, Cooperative Heart: Regular rate, Normal S1, Normal S2 Lungs: Clear Abdomen: Normal bowel sounds, Soft Extremities: No clubbing, No cyanosis Skin: No rashes, No breakdown Labs Labs: Laboratory Tests Test 02/04/19 14:10 02/04/19 14:25 02/04/19 15:00 02/04/19 15:08 Glucose (Fingerstick) 114 mg/dL (70-99) White Blood Count 8.2 x10^3/uL (4.0-11.0) Red Blood Count 4.39 x10^6/uL (4.30-5.70) Hemoglobin 13.8 g/dL (13.0-17.5) Hematocrit 40.5 % (39.0-53.0) Mean Corpuscular Volume 92 fL (79-100) Mean Corpuscular Hemoglobin 31 pg (25-35) Mean Corpuscular Hemoglobin Concent 34 g/dL (31-37) Red Cell Distribution Width 15.3 % (11.5-14.5) Platelet Count 226 x10^3/uL (140-400) Neutrophils (%) (Auto) 59 % (31-73) Lymphocytes (%) (Auto) 29 % (24-48) Monocytes (%) (Auto) 8 % (0-9) Eosinophils (%) (Auto) 3 % (0-3) Basophils (%) (Auto) 1 % (0-3) Neutrophils # (Auto) 4.8 x10^3uL (1.8-7.7) Lymphocytes # (Auto) 2.4 x10^3/uL (1.0-4.8) Monocytes # (Auto) 0.7 x10^3/uL (0.0-1.1) Eosinophils # (Auto) 0.3 x10^3/uL (0.0-0.7) Basophils # (Auto) 0.1 x10^3/uL (0.0-0.2) Sodium Level 141 mmol/L (136-145) Potassium Level 3.8 mmol/L (3.5-5.1) Chloride Level 103 mmol/L (98-107) Carbon Dioxide Level 27 mmol/L (21-32) Anion Gap 11 (6-14) Blood Urea Nitrogen 13 mg/dL (8-26) Creatinine 1.0 mg/dL (0.7-1.3) Estimated GFR (Cockcroft-Gault) 92.9 BUN/Creatinine Ratio 13 (6-20) Glucose Level 111 mg/dL (70-99) Calcium Level 9.0 mg/dL (8.5-10.1) Total Bilirubin 0.3 mg/dL (0.2-1.0) Aspartate Amino Transf (AST/SGOT) 18 U/L (15-37) Alanine Aminotransferase (ALT/SGPT) 24 U/L (16-63) Alkaline Phosphatase 56 U/L (46-116) Troponin I Quantitative < 0.017 ng/mL (0.000-0.055) KW-Bxn-N-Type Natriuretic Peptide 51 pg/mL (0-124) Total Protein 6.9 g/dL (6.4-8.2) Albumin 3.7 g/dL (3.4-5.0) Albumin/Globulin Ratio 1.2 (1.0-1.7) Prothrombin Time 14.4 SEC (11.7-14.0) Prothromb Time International Ratio 1.2 (0.8-1.1) Urine Collection Type Unknown Urine Color Yellow Urine Clarity Clear Urine pH 5.5 Urine Specific [place] 1.025 Urine Protein Negative mg/dL (NEG-TRACE) Urine Glucose (UA) Negative mg/dL (NEG) Urine Ketones (Stick) Negative mg/dL (NEG) Urine Blood Trace (NEG) Urine Nitrite Negative (NEG) Urine Bilirubin Negative (NEG) Urine Urobilinogen Dipstick 1.0 mg/dL (0.2 mg/dL) Urine Leukocyte Esterase Negative (NEG) Urine RBC 3-5 /HPF (0-2) Urine WBC 0 /HPF (0-4) Urine Bacteria 0 /HPF (0-FEW) Urine Hyaline Casts Occasional /HPF Urine Mucus Marked /LPF Urine Opiates Screen Pos (NEG) Urine Methadone Screen Neg (NEG) Urine Barbiturates Neg (NEG) Urine Phencyclidine Screen Neg (NEG) Urine Amphetamine/Methamphetamine Neg (NEG) Urine Benzodiazepines Screen Pos (NEG) Urine Cocaine Screen Neg (NEG) Urine Cannabinoids Screen Pos (NEG) Urine Ethyl Alcohol Pos (NEG) Test 02/05/19 04:55 Triglycerides Level 62 mg/dL (0-150) Cholesterol Level 143 mg/dL (0-200) LDL Cholesterol, Calculated 91 mg/dL (0-100) VLDL Cholesterol, Calculated 12 mg/dL (0-40) Non-HDL Cholesterol Calculated 103 mg/dL (0-129) HDL Cholesterol 40 mg/dL (40-60) Cholesterol/HDL Ratio 3.6 Review of Systems Review of Systems Complains of back pain and weakness Assessment and Plan Assessmemt and Plan Problems Medical Problems: (1) Acute ischemic stroke Status: Right thalamic lacunar stroke Plan Aspirin and statins PT OT Neurology following Hope to discharge today Patient would like to see neurosurgery about is back pain and leg pain we'll consult Dr. Maciel [facility] DVT prophylaxis full code Comment Review of Relevant I have reviewed the following items kurtis (where applicable) has been applied. Labs Laboratory Tests Test 02/04/19 14:10 02/04/19 14:25 02/04/19 15:00 02/04/19 15:08 Glucose (Fingerstick) 114 mg/dL (70-99) White Blood Count 8.2 x10^3/uL (4.0-11.0) Red Blood Count 4.39 x10^6/uL (4.30-5.70) Hemoglobin 13.8 g/dL (13.0-17.5) Hematocrit 40.5 % (39.0-53.0) Mean Corpuscular Volume 92 fL (79-100) Mean Corpuscular Hemoglobin 31 pg (25-35) Mean Corpuscular Hemoglobin Concent 34 g/dL (31-37) Red Cell Distribution Width 15.3 % (11.5-14.5) Platelet Count 226 x10^3/uL (140-400) Neutrophils (%) (Auto) 59 % (31-73) Lymphocytes (%) (Auto) 29 % (24-48) Monocytes (%) (Auto) 8 % (0-9) Eosinophils (%) (Auto) 3 % (0-3) Basophils (%) (Auto) 1 % (0-3) Neutrophils # (Auto) 4.8 x10^3uL (1.8-7.7) Lymphocytes # (Auto) 2.4 x10^3/uL (1.0-4.8) Monocytes # (Auto) 0.7 x10^3/uL (0.0-1.1) Eosinophils # (Auto) 0.3 x10^3/uL (0.0-0.7) Basophils # (Auto) 0.1 x10^3/uL (0.0-0.2) Sodium Level 141 mmol/L (136-145) Potassium Level 3.8 mmol/L (3.5-5.1) Chloride Level 103 mmol/L (98-107) Carbon Dioxide Level 27 mmol/L (21-32) Anion Gap 11 (6-14) Blood Urea Nitrogen 13 mg/dL (8-26) Creatinine 1.0 mg/dL (0.7-1.3) Estimated GFR (Cockcroft-Gault) 92.9 BUN/Creatinine Ratio 13 (6-20) Glucose Level 111 mg/dL (70-99) Calcium Level 9.0 mg/dL (8.5-10.1) Total Bilirubin 0.3 mg/dL (0.2-1.0) Aspartate Amino Transf (AST/SGOT) 18 U/L (15-37) Alanine Aminotransferase (ALT/SGPT) 24 U/L (16-63) Alkaline Phosphatase 56 U/L (46-116) Troponin I Quantitative < 0.017 ng/mL (0.000-0.055) US-Cgq-H-Type Natriuretic Peptide 51 pg/mL (0-124) Total Protein 6.9 g/dL (6.4-8.2) Albumin 3.7 g/dL (3.4-5.0) Albumin/Globulin Ratio 1.2 (1.0-1.7) Prothrombin Time 14.4 SEC (11.7-14.0) Prothromb Time International Ratio 1.2 (0.8-1.1) Urine Collection Type Unknown Urine Color Yellow Urine Clarity Clear Urine pH 5.5 Urine Specific [place] 1.025 Urine Protein Negative mg/dL (NEG-TRACE) Urine Glucose (UA) Negative mg/dL (NEG) Urine Ketones (Stick) Negative mg/dL (NEG) Urine Blood Trace (NEG) Urine Nitrite Negative (NEG) Urine Bilirubin Negative (NEG) Urine Urobilinogen Dipstick 1.0 mg/dL (0.2 mg/dL) Urine Leukocyte Esterase Negative (NEG) Urine RBC 3-5 /HPF (0-2) Urine WBC 0 /HPF (0-4) Urine Bacteria 0 /HPF (0-FEW) Urine Hyaline Casts Occasional /HPF Urine Mucus Marked /LPF Urine Opiates Screen Pos (NEG) Urine Methadone Screen Neg (NEG) Urine Barbiturates Neg (NEG) Urine Phencyclidine Screen Neg (NEG) Urine Amphetamine/Methamphetamine Neg (NEG) Urine Benzodiazepines Screen Pos (NEG) Urine Cocaine Screen Neg (NEG) Urine Cannabinoids Screen Pos (NEG) Urine Ethyl Alcohol Pos (NEG) Test 02/05/19 04:55 Triglycerides Level 62 mg/dL (0-150) Cholesterol Level 143 mg/dL (0-200) LDL Cholesterol, Calculated 91 mg/dL (0-100) VLDL Cholesterol, Calculated 12 mg/dL (0-40) Non-HDL Cholesterol Calculated 103 mg/dL (0-129) HDL Cholesterol 40 mg/dL (40-60) Cholesterol/HDL Ratio 3.6 Laboratory Tests Test 02/04/19 14:10 02/04/19 14:25 02/04/19 15:00 02/04/19 15:08 Glucose (Fingerstick) 114 mg/dL (70-99) White Blood Count 8.2 x10^3/uL (4.0-11.0) Red Blood Count 4.39 x10^6/uL (4.30-5.70) Hemoglobin 13.8 g/dL (13.0-17.5) Hematocrit 40.5 % (39.0-53.0) Mean Corpuscular Volume 92 fL (79-100) Mean Corpuscular Hemoglobin 31 pg (25-35) Mean Corpuscular Hemoglobin Concent 34 g/dL (31-37) Red Cell Distribution Width 15.3 % (11.5-14.5) Platelet Count 226 x10^3/uL (140-400) Neutrophils (%) (Auto) 59 % (31-73) Lymphocytes (%) (Auto) 29 % (24-48) Monocytes (%) (Auto) 8 % (0-9) Eosinophils (%) (Auto) 3 % (0-3) Basophils (%) (Auto) 1 % (0-3) Neutrophils # (Auto) 4.8 x10^3uL (1.8-7.7) Lymphocytes # (Auto) 2.4 x10^3/uL (1.0-4.8) Monocytes # (Auto) 0.7 x10^3/uL (0.0-1.1) Eosinophils # (Auto) 0.3 x10^3/uL (0.0-0.7) Basophils # (Auto) 0.1 x10^3/uL (0.0-0.2) Sodium Level 141 mmol/L (136-145) Potassium Level 3.8 mmol/L (3.5-5.1) Chloride Level 103 mmol/L (98-107) Carbon Dioxide Level 27 mmol/L (21-32) Anion Gap 11 (6-14) Blood Urea Nitrogen 13 mg/dL (8-26) Creatinine 1.0 mg/dL (0.7-1.3) Estimated GFR (Cockcroft-Gault) 92.9 BUN/Creatinine Ratio 13 (6-20) Glucose Level 111 mg/dL (70-99) Calcium Level 9.0 mg/dL (8.5-10.1) Total Bilirubin 0.3 mg/dL (0.2-1.0) Aspartate Amino Transf (AST/SGOT) 18 U/L (15-37) Alanine Aminotransferase (ALT/SGPT) 24 U/L (16-63) Alkaline Phosphatase 56 U/L (46-116) Troponin I Quantitative < 0.017 ng/mL (0.000-0.055) RL-Ynw-X-Type Natriuretic Peptide 51 pg/mL (0-124) Total Protein 6.9 g/dL (6.4-8.2) Albumin 3.7 g/dL (3.4-5.0) Albumin/Globulin Ratio 1.2 (1.0-1.7) Prothrombin Time 14.4 SEC (11.7-14.0) Prothromb Time International Ratio 1.2 (0.8-1.1) Urine Collection Type Unknown Urine Color Yellow Urine Clarity Clear Urine pH 5.5 Urine Specific [place] 1.025 Urine Protein Negative mg/dL (NEG-TRACE) Urine Glucose (UA) Negative mg/dL (NEG) Urine Ketones (Stick) Negative mg/dL (NEG) Urine Blood Trace (NEG) Urine Nitrite Negative (NEG) Urine Bilirubin Negative (NEG) Urine Urobilinogen Dipstick 1.0 mg/dL (0.2 mg/dL) Urine Leukocyte Esterase Negative (NEG) Urine RBC 3-5 /HPF (0-2) Urine WBC 0 /HPF (0-4) Urine Bacteria 0 /HPF (0-FEW) Urine Hyaline Casts Occasional /HPF Urine Mucus Marked /LPF Urine Opiates Screen Pos (NEG) Urine Methadone Screen Neg (NEG) Urine Barbiturates Neg (NEG) Urine Phencyclidine Screen Neg (NEG) Urine Amphetamine/Methamphetamine Neg (NEG) Urine Benzodiazepines Screen Pos (NEG) Urine Cocaine Screen Neg (NEG) Urine Cannabinoids Screen Pos (NEG) Urine Ethyl Alcohol Pos (NEG) Test 02/05/19 04:55 Triglycerides Level 62 mg/dL (0-150) Cholesterol Level 143 mg/dL (0-200) LDL Cholesterol, Calculated 91 mg/dL (0-100) VLDL Cholesterol, Calculated 12 mg/dL (0-40) Non-HDL Cholesterol Calculated 103 mg/dL (0-129) HDL Cholesterol 40 mg/dL (40-60) Cholesterol/HDL Ratio 3.6 Medications Current Medications Aspirin (Children'S Aspirin) 324 mg 1X ONCE PO Last administered on 02/04/19at 15:25; Start 02/04/19 at 14:30; Stop 02/04/19 at 14:57; Status DC Iohexol (Omnipaque 350 Mg/ml) 75 ml 1X ONCE IV Last administered on 02/04/19at 15:00; Start 02/04/19 at 15:00; Stop 02/04/19 at 15:01; Status DC Simvastatin (Zocor) 10 mg QHS PO Last administered on 02/04/19at 21:26; Start 02/04/19 at 21:00 Acetaminophen (Tylenol) 650 mg PRN Q6HRS PRN PO TEMP > 100.4F; Start 02/04/19 at 15:30 Acetaminophen (Tylenol Supp) 650 mg PRN Q4HRS PRN [place] TEMP > 100.4F; Start 02/04/19 at 15:30 Aspirin (Ecotrin) 325 mg DAILYWBKFT PO ; Start 02/05/19 at 08:00 Aspirin (Aspirin Rectal Supp) 300 mg PRN DAILY PRN [place] IF UNABLE TO TAKE PO; Start 02/04/19 at 15:30 Acetaminophen/ Hydrocodone Bitart (Lortab 5325) 1 tab PRN Q4HRS PRN PO PAIN Last administered on 02/05/19at 06:57; Start 02/04/19 at 18:00 Vitals/I & O Vital Sign - Last 24 Hours 02/04/19 02/04/19 02/04/19 02/04/19 14:20 14:30 14:45 15:00 Temp 98.2 98.2 Pulse 98 98 94 94 Resp 12 16 16 21 B/P (MAP) 150/71 (97) Pulse Ox 100 97 95 96 02/04/19 02/04/19 02/04/19 02/04/19 15:15 15:30 15:45 16:00 Pulse 92 88 89 85 Resp Pulse Ox 97 96 97 98 02/04/19 02/04/19 02/04/19 02/04/19 16:15 16:30 16:45 18:41 Temp 98.1 98.1 Pulse 87 86 84 81 Resp 17 18 16 B/P (MAP) 129/87 (101) Pulse Ox 97 96 98 95 O2 Delivery Room Air 02/04/19 02/04/19 02/05/19 02/05/19 19:10 23:59 03:54 07:00 Temp 98.2 98.1 98.2 98.3 98.2 98.1 98.2 98.3 Pulse 75 73 71 77 Resp 18 B/P (MAP) 140/83 (102) 129/81 (97) 151/83 (105) 144/110 (121) Pulse Ox 98 98 97 O2 Delivery Room Air Room Air Room Air Intake and Output 02/04/19 02/04/19 02/05/19 14:59 22:59 06:59 Intake Total 720 ml 900 ml Balance 720 ml 900 ml LOVE JAMES III DO February 05, 2019 10:26
--- NOTE | 2019-02-05 10:41 | NUR ---
SW following for discharge planning. Chart reviewed. Pt is from home and no discharge needs or recommendations noted at this time. PT/OT pending. SW will continue to follow for pending discharge needs.
[2019-02-05 11:00] VITALS: BP 127/85
--- NOTE | 2019-02-05 13:21 | CARD ---
MR#: [id number] Date of Study: 02/05/2019 Ordering Physician: FAHAD ARGUETA, Referring Physician: Moon ROJAS: Analilia Gustafson APPROVED REPORT EXAM: Two-dimensional and M-mode echocardiogram with Doppler and color Doppler. Other Information Quality : AverageHR: 69bpm Technically limited study due to smoking. INDICATION CVA/TIA Echo Enhancing Agent Indication: Rule Out Septal Defect Agent/Amount Used: Agitated Saline 10mL RISK FACTORS Hypertension Smoking 2D DIMENSIONS Left Atrium(2D)4.1 (1.6-4.0cm)IVSd1.0 (0.7-1.1cm) Aortic Root(2D)3.5 (2.0-3.7cm)LVDd5.3 (3.9-5.9cm) LVOT Diameter2.1 (1.8-2.4cm)PWd1.2 (0.7-1.1cm) LVDs3.1 (2.5-4.0cm)FS (%) 41.6 % SV95.9 ml Aortic Valve AoV Peak Vik.112.7cm/sAoV VTI22.0cm AO Peak GR.5.1mmHgLVOT VTI 19.83cm AO Mean GR.3mmHg Mitral Valve MV E Rjbkbpnz43.7cm/sMV DECEL [id number] MV A Kzmepfvh79.0cm/sE/A Ratio1.4 TDI Lateral E' P. V7.34cm/sMedial E' P. V7.92cm/s E/Lateral E'7.9E/Medial E'7.3 Tricuspid Valve TR P. Huenddir220eq/sRAP AHTGUUPJ3cfSp TR Peak Gr.84gbQfMBKA97jcYc Pulmonary Vein S1 Ywjkbynz60.9cm/sS2 Yyogbhwe04.85cm/s D2 Ddrdqdwz45.9cm/sPVa covsgkgi189lhgf LEFT VENTRICLE The left ventricle is normal size. There is mild concentric left ventricular hypertrophy. The left ve ntricular systolic function is normal and the ejection fraction is within normal range. The Ejection Fraction is 55-60%. There is normal LV segmental wall motion. Transmitral Doppler flow pattern is Gra de II-pseudonormal filling dynamics. RIGHT VENTRICLE The right ventricle is normal size. There is normal right ventricular wall thickness. The right ventr icular systolic function is normal. ATRIA The left atrium size is normal. The right atrium size is normal. The interatrial septum is intact wit h no evidence for an atrial septal defect or patent foramen ovale as noted on 2-D or Doppler imaging. Injection of bubbles documented no interatrial shunt. AORTIC VALVE The aortic valve is normal in structure and function. Doppler and Color Flow revealed no significant aortic regurgitation. There is no significant aortic valvular stenosis. MITRAL VALVE The mitral valve is normal in structure and function. There is no evidence of mitral valve prolapse. There is no mitral valve stenosis. Doppler and Color-flow revealed trace mitral regurgitation. TRICUSPID VALVE The tricuspid valve is normal in structure and function. Doppler and Color Flow revealed trace tricus pid regurgitation with an estimated PAP of 28 mmHg. There is no tricuspid valve stenosis. PULMONIC VALVE The pulmonic valve is not well visualized. Doppler and Color Flow revealed no pulmonic valvular regur gitation. GREAT VESSELS The aortic root is normal in size. The IVC is normal in size and collapses >50% with inspiration. PERICARDIAL EFFUSION There is no evidence of significant pericardial effusion. Critical Notification Critical Value: No <Conclusion> The left ventricle is normal size. The left ventricular systolic function is normal and the ejection fraction is within normal range. The Ejection Fraction is 55-60%. There is mild concentric left ventricular hypertrophy. The interatrial septum is intact with no evidence for an atrial septal defect or patent foramen ovale as noted on 2-D or Doppler imaging. Injection of bubbles documented no interatrial shunt. There is no significant aortic valvular stenosis. Doppler and Color Flow revealed no significant aortic regurgitation. Doppler and Color-flow revealed trace mitral regurgitation. Doppler and Color Flow revealed trace tricuspid regurgitation with an estimated PAP of 28 mmHg. Signed by : Teto Kahn MD Electronically Approved : 02/05/2019 13:20:54
[2019-02-05] MEDS ORDERED: IOHEXOL 300 MG/ML 50 ML VIAL. ONE (13:52)
[2019-02-05] MEDS ORDERED: methylPREDNISolone ACETATE 40 MG/ML VIAL. INJ ONE (14:00)
[2019-02-05] MEDS ORDERED: BUPIVACAINE MPF 0.5% 10 ML VIAL. IJ ONE (14:00)
[2019-02-05] MEDS ORDERED: BUPIVACAINE MPF 0.5% 30 ML VIAL. INJ ONE (14:00)
[2019-02-05] MEDS ORDERED: GABAPENTIN 300 MG CAPSULE. PO SCH (14:00)
[2019-02-05 15:00] VITALS: BP 145/80
--- NOTE | 2019-02-05 15:28 | RAD ---
Fluoroscopically guided left hip joint injection, 02/05/2019: HISTORY: Arthritis Under local anesthesia, aseptic conditions and fluoroscopic guidance a 22-gauge needle was passed into the left hip joint via an anterior approach. A small amount of iodinated contrast material was injected to confirm intra-articular positioning. The joint capsule is quite irregular. 40 mg of Depo-Medrol mixed with 4 cc of 0.5 percent Marcaine was injected into the joint as requested. The needle was then removed and hemostasis obtained. 1.5 minutes of fluoroscopy time was utilized. 2 fluoroscopic spot images were recorded. The patient tolerated the procedure well and was returned to the floor in good condition. Electronically signed by: Ritchie Barillas MD (02/05/2019 3:26 PM) [facility]
--- NOTE | 2019-02-05 18:30 | NUR ---
Pt was discharged to home at 1830 in stable condition with all personal belongings after reviewing all pertinent information including education, medications, follow up and at home care. STROKE SCALE & EDUCATION COMPLETED AT DISCHARGE. Pt was escorted by staff and driven home by his .
--- NOTE | 2019-02-07 00:27 | CONS ---
DATE OF CONSULTATION: 02/05/2019 ATTENDING PHYSICIAN: Dr. Jimenez. The patient was seen at the request of Dr. Pabon and Dr. Jimenez for rehab evaluation about his left knee pain. HISTORY OF PRESENT ILLNESS: This is a 58-year-old male admitted through the Emergency Room on 02/04/2019. The patient about 45 minutes prior to his arrival in the Emergency Room, began feeling funny, some tingling in his left hand, questionable left hand weakness as well as possible left facial droop without any headache or vision changes or pain. Code stroke was activated. He denies any chest pain, shortness of breath, nausea, vomiting or ataxia. There are no alleviating or exacerbating factors to his symptoms. The patient with known hypertension, smokes. 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 The patient ran out of his blood pressure medication about 3 days ago. He does not have any family physician since Dr. Velasquez, his family physician . The patient had CT scan of the brain done, which failed to reveal any acute abnormalities. The patient did not receive any TPA due to low NIH stroke scale. The patient had CTA of head and neck, which revealed 12 mm right thyroid nodule and cervical spondylosis with rxpnsyzf-[id number] spinal and foraminal stenosis. Chest x-ray failed to reveal any acute abnormalities. Carotid Doppler studies failed to reveal any significant stenosis. X-rays of the knees failed to reveal any acute abnormality. MRI scan of the brain done today failed to reveal any acute abnormalities. It revealed supratentorial parenchyma and small focus of right brent, possibly due to chronic microvascular ischemic disease, moderate complex appearing fluid of the left mastoid air cells, uncertain sterility. The patient prior to the present hospitalization has been independent with his mobility and self-care skills. He admits some numbness and pain over lateral aspect of left thigh and pain in his groin area. He denies any significant pain in his knees itself. PHYSICAL EXAMINATION: The patient on physical examination today revealed a middle-aged male. He is alert, oriented to time, place, person and circumstance and follows commands appropriately, moves all 4 extremities voluntarily where he had 4+/5 grade muscle strength and deep tendon reflexes are 1 to 2+ and symmetrical and he had limitation of left hip rotational movements. He had tenderness to palpation over left trochanteric bursa area and over left hip adductor tendon attachment to pubic tubercle. Mild crepitus on range of motion of both knee joints without any obvious knee joint effusion. No significant pain on range of motion of cervical or lumbar spine. He is independent with bed mobility and transfers. He limps on his left foot to some extent. He had decreased sensory perception over left lateral femoral cutaneous nerve distribution over lateral aspect of left thigh with negative Tinel sign over left lateral femoral cutaneous nerve at inguinal ligament area. 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 The patient with known hypertension, also radiological evidence of degenerative disk disease and degenerative joint disease of cervical vertebrae without any clinical evidence of ongoing cervical radiculopathy or cervical spinal stenosis. RECOMMENDATION: To obtain x-rays of pelvis and left hip and I have asked Radiology to inject his left hip joint under fluoroscopy using Marcaine and Depo-Medrol solution, which he had it done today. As he does not have any health insurance and eager to go home, to let him go home with outpatient followup. He was advised to make sure he keep an appointment with Dr. Candido Reagan. I have introduced him Dr. Reagan for followup of his hypertension. I would like to see him for followup on as needed basis. Dr. Pabon, I appreciate asking me to participate in the care of this interesting patient. I will be glad to follow him with you as needed by the rehabilitation. AMPARO AUGUSTINE MD DR: JACQUELYN/song JOB#: [id number] / [id number]
== END 2019-02-05 18:30 | disposition home or self-care (01) | DRG 65 ==
LOC: ER 14:01 → 6 SOUTH 15:30
PROVIDERS: ADMIT Internal Medicine; ATTEND Internal Medicine
DX: I63.81 Other cerebral infarction due to occlusion or stenosis of small artery (principal); G81.94 Hemiplegia, unspecified affecting left nondominant side; E04.1 Nontoxic single thyroid nodule; G57.12 Meralgia paresthetica, left lower limb; G89.29 Other chronic pain; I10 Essential (primary) hypertension; M16.12 Unilateral primary osteoarthritis, left hip; M17.0 Bilateral primary osteoarthritis of knee; M47.812 Spondylosis without myelopathy or radiculopathy, cervical region; M70.62 Trochanteric bursitis, left hip; M77.9 Enthesopathy, unspecified; Z82.3 Family history of stroke; Z82.49 Family history of ischemic heart disease and other diseases of the circulatory system; Z87.891 Personal history of nicotine dependence
CPT/HCPCS: 20610; 36415; 70450; 70496; 70498; 70551; 71045; 73565; 77002; 80053; 80061; 80307; 81001; 82962; 83880; 84484; 85025; 85610; 93005; 93306; 93880; J1030; Q9967; 99285-25